=== PATIENT | female | born 1990 | race Caucasian/White ===

== ENCOUNTER 2018-06-29 05:53 | Emergency (ER) | payer SELFPAY ==
[~2018-06-29] VITALS: Ht 165.1 cm; Wt 46.2 kg
[~2018-06-29 05:53] MED LIST: OFLO5DRO7 OP; PRED5DRO15 OP; TIMO5DRO5 EACHEYE; TRAZ-137 PO
--- NOTE | 2018-06-29 06:00 | NUR ---
assessment made. chart up for MD to see.
--- NOTE | 2018-06-29 06:15 | NUR ---
patient to x ray.
--- NOTE | 2018-06-29 06:20 | NUR ---
back from X ray. medicated per AUG.
[2018-06-29] MEDS ORDERED: BENZONATATE 100 MG CAPSULE ONE (06:28)
[2018-06-29] MEDS ORDERED: BENZONATATE 100 MG CAPSULE PO ONE (06:30)
--- NOTE | 2018-06-29 06:55 | NUR ---
report to [facility].
[2018-06-29 06:56] VITALS: BP 110/67
--- NOTE | 2018-06-29 07:28 | NUR ---
Patient/Caregiver given discharge instructions and they have confirmed that they understand the instructions. Patient ambulatory with steady gait. Cab voucher provided.
== END 2018-06-29 07:29 | disposition home or self-care (01) ==
LOC: ED 06:27
DX: J06.9 Acute upper respiratory infection, unspecified (principal); J45.909 Unspecified asthma, uncomplicated
CPT/HCPCS: 71046; 99283

== ENCOUNTER 2018-08-09 12:24 | Emergency (ER) | payer MEDICAID, OTHER ==
[~2018-08-09] VITALS: Ht 165.1 cm; Wt 44.8 kg
[2018-08-09 12:38] VITALS: BP 116/84
[2018-08-09] MEDS ORDERED: PROPARACAINE OPHTH 0.5%, 15ML ONE (12:45)
[2018-08-09] MEDS ORDERED: FLUORESCEIN OPHTHALMIC 1 MG STRIP ONE (12:45)
--- NOTE | 2018-08-09 12:57 | NUR ---
Vision Acuity Tested pt states no vision out of the right eye, provider aware.
[2018-08-09] MEDS ORDERED: PROPARACAINE OPHTH 0.5%, 15ML EACHEYE ONE (13:00)
[2018-08-09] MEDS ORDERED: FLUORESCEIN OPHTHALMIC 1 MG STRIP EACHEYE ONE (13:00)
--- NOTE | 2018-08-09 13:45 | NUR ---
call x 2 to obtain eye gtts from pharmacy.
[2018-08-09] MEDS ORDERED: MOXIFLOXACIN OPHTH O.5%, 3ML LEFTEYE SCH (16:00)
== END 2018-08-09 14:03 | disposition home or self-care (01) ==
LOC: ED 13:50
DX: H16.012 Central corneal ulcer, left eye (principal); J45.909 Unspecified asthma, uncomplicated; Z86.19 Personal history of other infectious and parasitic diseases; Z88.0 Allergy status to penicillin
CPT/HCPCS: 99283

== ENCOUNTER 2020-01-07 09:03 | Inpatient (IN) | payer SELFPAY ==
[~2020-01-07] VITALS: Ht 165.1 cm; Wt 47.7 kg
[~2020-01-07 09:03] MED LIST changes: -TRAZ-137 PO; +TRAZ-175 PO
[2020-01-07 09:53] LABS: BASOPHILS # (AUTO) 0.05 x10^3/uL (0-0.1); BASOPHILS % (AUTO) 0 % (0-1); EOSINOPHILS % (AUTO) 1 % (1-7); LYMPHOCYTES # (AUTO) 1.72 x10^3/uL (1-3.4); LYMPHOCYTES % (AUTO) 14 % (22-44); MD NO; MEAN CORPUSCULAR HEMOGLOBIN 30.9 pg (27.0-34.8); MEAN CORPUSCULAR HGB CONC 33.4 g/dL (32.4-35.8); MEAN CORPUSCULAR VOLUME 92.4 fL (80-100); MEAN PLATELET VOLUME 7.2 fL (7.4-10.4); MONOCYTES # (AUTO) 0.55 x10^3/uL (0.2-0.8); MONOCYTES % (AUTO) 5 % (2-9); NEUTROPHILS # (AUTO) 9.84 x10^3/uL (1.8-6.8); NEUTROPHILS % (AUTO) 80 % (42-75); PLATELET COUNT 233 x10^3/uL (130-400); RED BLOOD COUNT 3.53 x10^6/uL (3.82-5.3); RED CELL DISTRIBUTION WIDTH 13.3 % (9.6-15.2)
--- NOTE | 2020-01-07 09:55 | NUR ---
PT UPRIGHT ON GURNEY AWAKE & YELLING OUT IN PAIN, DR MORE AT BS, PT RESPONDS APPROP TO STAFF, COMFORT MEASURES PROVIDED, BF AT BS, CALL LIGHT WITHIN REACH. PT TO US.
[2020-01-07] MEDS ORDERED: SODIUM CHLORIDE 0.9% 1,000ML IVBOLUS ONE (10:00)
[2020-01-07] MEDS ORDERED: SODIUM CHLORIDE FLUSH 10ML SYR IVF ONE (10:00)
[2020-01-07] MEDS ORDERED: MORPHINE SULFATE 4 MG/ML, 1ML IVPush PRN (10:00)
[2020-01-07] MEDS ORDERED: ONDANSETRON 2MG/ML, 2ML IVPush ONE (10:00)
[2020-01-07 10:02] LABS: ALBUMIN 2.6 g/dL (3.4-5.0); ANION GAP 6 mmol/L (5-15); CALCIUM 8.4 mg/dL (8.5-10.1); CHLORIDE 108 mmol/L (98-107); CREATININE 0.44 mg/dL (0.55-1.02)
--- NOTE | 2020-01-07 10:15 | NUR ---
PT RETURNED FROM US.
[2020-01-07] MEDS ORDERED: MORPHINE SULFATE 4 MG/ML, 1ML ONE (10:20)
[2020-01-07] MEDS ORDERED: ONDANSETRON 2MG/ML, 2ML ONE (10:20)
--- NOTE | 2020-01-07 11:04 | NUR ---
PT REMIANS UPRIGHT ON GURNEY AWAKE & CONTINUES YELLING OUT IN PAIN,US COMPLETED, PT RESPONDS APPROP TO STAFF, COMFORT MEASURES PROVIDED, BF AT BS, CALL LIGHT WITHIN REACH.
[2020-01-07 11:36] LABS: MICROSCOPIC AUTO
[2020-01-07] MEDS ORDERED: HYDROmorphone 1 MG/ML, 1ML INJ ONE (12:00)
[2020-01-07] MEDS ORDERED: HYDROmorphone 1 MG/ML, 1ML INJ IV ONE (12:00)
[2020-01-07] MEDS ORDERED: CEFTRIAXONE PMX 1GM/50ML 50 ML ONE (12:00)
[2020-01-07] MEDS ORDERED: CEFTRIAXONE PMX 1GM/50ML 50 ML IV ONE (12:00)
--- NOTE | 2020-01-07 12:23 | NUR ---
Pt to be admitted to L&D. Report called to Makenzie.
[2020-01-07 12:25] VITALS: BP 92/63
[2020-01-07] MEDS ORDERED: LORazepam 2 MG/ML, 1ML ONE (12:30)
[2020-01-07] MEDS ORDERED: LORazepam 2 MG/ML, 1ML IVPush ONE (12:30)
[2020-01-07 12:47] VITALS: BP 102/70
[2020-01-07 12:58] LABS: AMPHETAMINE SCREEN, URINE Positive (Negative); BARBITURATE SCREEN, URINE Negative (Negative); BENZODIAZEPINE SCREEN, URINE Negative (Negative); CANNABINOID SCREEN, URINE Negative (Negative); COCAINE SCREEN, URINE Negative (Negative); METHADONE SCREEN, URINE Negative (Negative); OPIATE SCREEN, URINE Positive (Negative)
[2020-01-07 13:09] VITALS: BP 115/74
[2020-01-07] MEDS ORDERED: FENTANYL PF 100 MCG/2ML ONE (13:40)
[2020-01-07] MEDS ORDERED: LACTATED RINGERS 1,000 ML IV SCH ×2 (13:42→14:58)
[2020-01-07] MEDS ORDERED: OXYTOCIN 30U/ 0.9% NaCL 500ML 500 ML IV ONE (13:42)
[2020-01-07] MEDS ORDERED: D5%-LACTATED RINGERS 1,000 ML IV SCH (13:42)
[2020-01-07] MEDS ORDERED: FENTANYL PF 100 MCG/2ML IVPush PRN (14:00)
[2020-01-07] MEDS ORDERED: ONDANSETRON 2MG/ML, 2ML IVPush PRN ×2 (14:00→15:00)
[2020-01-07] MEDS ORDERED: TERBUTALINE 1 MG/ML, 1ML SQ PRN (14:00)
[2020-01-07] MEDS ORDERED: CALCIUM CARBONATE 500 MG TAB.CHEW PO PRN (14:00)
[2020-01-07] MEDS ORDERED: TERBUTALINE 1 MG/ML, 1ML IVPush PRN (14:00)
[2020-01-07] MEDS ORDERED: FENTANYL/BUPIV./NS/PF 250 ML EPIDCONT ONE (14:22)
[2020-01-07] MEDS ORDERED: BUPIVACAINE 0.25% ONE (14:37)
[2020-01-07] MEDS ORDERED: FENTANYL/BUPIV./NS/PF 250 ML EPIDCONT SCH (14:58)
[2020-01-07] MEDS ORDERED: LACTATED RINGERS 1,000 ML IVBOLUS PRN (15:00)
[2020-01-07] MEDS ORDERED: NALOXONE 0.4 MG/ML, 1ML IVPush PRN (15:00)
[2020-01-07] MEDS ORDERED: DIPHENHYDRAMINE 50 MG/ML, 1ML IVPush PRN (15:00)
[2020-01-07] MEDS ORDERED: EPHEDRINE 50 MG/ML, 1ML IVPush PRN (15:00)
[2020-01-07] MEDS ORDERED: MISOPROSTOL 200 MCG TABLET ONE ×2 (15:34→15:36)
[2020-01-07] MEDS ORDERED: OXYTOCIN 30U/ 0.9% NaCL 500ML 500 ML ONE (15:34)
[2020-01-07] MEDS ORDERED: MISOPROSTOL 200 MCG TABLET VG SCH (16:00)
== END 2020-01-08 00:15 | disposition home or self-care (01) | DRG 779 ==
LOC: ED 12:06 → LDIP 12:33
PROVIDERS: ADMIT Obstetrics & Gynecology; ATTEND Obstetrics & Gynecology
PROC: 10E0XZZ Delivery of Products of Conception, External Approach (ICD-10-PCS; principal; 2020-01-07)
PROC: 3E0P7VZ Introduction of Hormone into Female Reproductive, Via Natural or Artificial Opening (ICD-10-PCS; 2020-01-07)
PROC: 00HU33Z Insertion of Infusion Device into Spinal Canal, Percutaneous Approach (ICD-10-PCS; 2020-01-07)
PROC: 3E0R3BZ Introduction of Anesthetic Agent into Spinal Canal, Percutaneous Approach (ICD-10-PCS; 2020-01-07)
DX: O03.9 Complete or unspecified spontaneous abortion without complication (principal); O34.32 Maternal care for cervical incompetence, second trimester; O99.322 Drug use complicating pregnancy, second trimester; O26.872 Cervical shortening, second trimester; F11.20 Opioid dependence, uncomplicated; F15.20 Other stimulant dependence, uncomplicated; R64 Cachexia; O03.88 Urinary tract infection following complete or unspecified spontaneous abortion; O32.1XX0 Maternal care for breech presentation, not applicable or unspecified; J45.909 Unspecified asthma, uncomplicated; F17.200 Nicotine dependence, unspecified, uncomplicated; O99.332 Smoking (tobacco) complicating pregnancy, second trimester; O99.512 Diseases of the respiratory system complicating pregnancy, second trimester; B96.20 Unspecified Escherichia coli [E. coli] as the cause of diseases classified elsewhere; Z20.828 Contact with and (suspected) exposure to other viral communicable diseases; Z59.0 Homelessness; Z3A.16 16 weeks gestation of pregnancy
CPT/HCPCS: 36415; 76815; 80048; 80307; 81001; 82040; 84702; 85025; 86592; 86850; 86900; 86901; 87077; 87086; 87186; 87635; 88305; G0378; J0696; J1170; J2405; J3010; J2060; J2270; J7030